=== PATIENT | female | born 1990 ===

== ENCOUNTER 2017-10-01 08:47 | Emergency (ER) | payer MEDICAID, OTHER ==
[2017-10-01 08:56] VITALS: BMI 27.4
[2017-10-01 08:59] VITALS: BP 119/83; PULSE 88; RESP 20; TEMP 98.1; O2SAT 100
[2017-10-01] MEDS ORDERED: Amoxicillin-Clav 875-125 mg Tab PO STA (09:38)
--- NOTE | 2017-10-01 09:41 | C.PDOC ---
History Of Present Illness 26 y/o female presents to ED for evaluation of cold sx for past few days associated with nasal congestion, runny nose, " sinuses pressure", sore throat and dry cough. Otherwise, Patient denies high fever, severe headache, dizziness , vertigo, drooling, neck pain, shortness of breath, wheezing, abdominal pain, vomiting or diarrhea, back pain, UTI sx. Ambulate to ED for evaluation, not in any apparent distress. Time Seen by Provider: 10/01/17 09:33 Chief Complaint (Nursing): Cough, Cold, Congestion History/Exam Limitations: no limitations Onset/Duration Of Symptoms: Days (2) Current Symptoms Are (Timing): Still Present Location Of Pain: Throat Associated Symptoms: Sore Throat, Cough, Nasal Congestion. denies: Vomiting, Diarrhea Past Medical History Reviewed: Historical Data, Nursing Documentation, Vital Signs Vital Signs: Last Vital Signs Temp 98.1 F 10/01/17 08:56 Pulse 88 10/01/17 08:56 Resp 20 10/01/17 08:56 BP 119/83 10/01/17 08:56 Pulse Ox 100 10/01/17 12:33 - Medical History PMH: No Chronic Diseases, Gastritis Surgical History: No Surg Hx - [facility] Procedures MANUAL ASSIST DELIV NEC (12/16/13) Family History: States: No Known Family Hx, Unknown Family Hx - Social History Hx Tobacco Use: No Hx Alcohol Use: Yes Hx Substance Use: No - Immunization History Hx Tetanus Toxoid Vaccination: No Hx Influenza Vaccination: No Hx Pneumococcal Vaccination: No Review Of Systems Except As Marked, All Systems Reviewed And Found Negative. Constitutional: Negative for: Fever ENT: Positive for: Throat Pain. Negative for: Other (drooling) Respiratory: Positive for: Cough (Dry). Negative for: Shortness of Breath Gastrointestinal: Negative for: Vomiting, Abdominal Pain, Diarrhea Musculoskeletal: Negative for: Neck Pain Physical Exam - Physical Exam Appears: Well, No Acute Distress Skin: Normal Color, Warm, Dry, No Rash Head: Normacephalic Eye(s): bilateral: PERRL Ear(s): Bilateral: Normal Nose: No Flaring, Discharge (B/L clear), No Deformity, No Tenderness Oral Mucosa: Moist, No Drooling, Other (B/L paranasal tenderness, no edema or erythema) Throat: Erythema (mild B/L pharyngeal), No Drooling Neck: Trachea Midline, Supple, Other ((-) meningeal sign) Cardiovascular: Rhythm Regular, No Murmur Respiratory: No Decreased Breath Sounds, No Accessory Muscle Use, No Stridor, No Wheezing Gastrointestinal/Abdominal: Soft, No Tenderness, No Distention, No Guarding Back: No CVA Tenderness Extremity: Normal ROM, No Deformity, No Swelling Neurological/Psych: Oriented x3, Normal Speech ED Course And Treatment O2 Sat by Pulse Oximetry: 100 (RA) Pulse Ox Interpretation: Normal Progress Note: Patient given Motrin, 1st dose of antibiotics and steriods. Stable for discharge home, instructed to take medications as prescribed and follow up with her primary care provider. Disposition Counseled Patient/Family Regarding: Diagnosis, Need For Followup, Rx Given - Disposition Referrals: [facility] [Outside] Disposition: HOME/ ROUTINE Disposition Time: 09:39 Condition: STABLE Additional Instructions: Encourage fluids Take medication as prescribed' Follow up with PMD in 2 days for re-evaluation. 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 - Scribe Statement The provider has reviewed the documentation as recorded by the Scribe (Daphnie Loera) All medical record entries made by the Scribe were at my direction and personally dictated by me. I have reviewed the chart and agree that the record accurately reflects my personal performance of the history, physical exam, medical decision making, and the department course for this patient. I have also personally directed, reviewed, and agree with the discharge instructions and disposition.
[2017-10-01] MEDS ORDERED: Amoxicillin-Clav 875-125 mg Tab PO ONE (09:56)
== END 2017-10-01 10:15 | disposition home or self-care (01) ==
LOC: C.ER 08:47
DX: J32.9 Chronic sinusitis, unspecified (principal)

== ENCOUNTER 2017-11-14 10:43 | Emergency (ER) | payer MEDICAID ==
[2017-11-14 10:43] VITALS: BMI 27.4
[2017-11-14 10:50] VITALS: O2SAT 100
[2017-11-14] MEDS ORDERED: Alum-Mag Hydrox-Simethicone Susp (30 mL) PO STA (11:34)
[2017-11-14] MEDS ORDERED: Sodium Chloride 0.9% 0 ML ONE (11:41)
[2017-11-14] MEDS ORDERED: Alum-Mag Hydrox-Simethicone Susp (30 mL) ONE (11:41)
[2017-11-14 11:58] LABS: BASO % 0.2 % (0.0-2.0); EOS # 0.2 K/uL (0.0-0.7); EOS % 2.6 % (0.0-4.0); LYMPH # 2.1 K/uL (1.0-4.3); LYMPH % 24.3 % (20.0-40.0); MEAN CORPUSCULAR HEMOGLOBIN 26.9 pg (27.0-31.0); MEAN CORPUSCULAR HGB CONC 33.4 g/dL (33.0-37.0); MONO # 0.5 K/uL (0.0-0.8); MONO % 5.5 % (0.0-10.0); NEUT # 5.8 K/uL (1.8-7.0); NEUT % 67.4 % (50.0-75.0); RBC 4.86 Mil/uL (3.80-5.20); RED CELL DISTRIBUTION WIDTH 12.9 % (11.5-14.5); WHITE BLOOD COUNT 8.6 K/uL (4.8-10.8)
[2017-11-14 12:02] LABS: HCG,QUALITATIVE URINE NEGATIVE (NEGATIVE)
[2017-11-14 12:03] LABS: HEMOGLOBIN 13.1 g/dL (11.0-16.0); MEAN CELL VOLUME 80.5 fL (81.0-99.0)
--- NOTE | 2017-11-14 12:06 | C.PDOC ---
History Of Present Illness 26 y/o female presents to ED with c/o abdominal pain for 3 days associated with nausea. Pt notes she has had the same symptoms for "years". She usually takes prilosec and pain improves but today pain radiated to her chest prompting ED visit. No prior endoscope. Notes she eats "junk"- fast food and snacks. Denies fever, vomting, blood in stool, vaginal bleeding, vaginal discharge, back pain, dysuria, sob or any other complaints at this time. Time Seen by Provider: 11/14/17 11:02 Chief Complaint (Nursing): Chest Pain History Per: Patient History/Exam Limitations: no limitations Onset/Duration Of Symptoms: Days Current Symptoms Are (Timing): Still Present Quality: "Pain" Associated Symptoms: Nausea Past Medical History Reviewed: Historical Data, Nursing Documentation, Vital Signs Vital Signs: Last Vital Signs Temp 98.9 F 11/14/17 12:56 Pulse 85 11/14/17 12:56 Resp 18 11/14/17 12:56 BP 120/81 11/14/17 12:56 Pulse Ox 100 11/14/17 14:08 - Medical History PMH: Gastritis Surgical History: No Surg Hx - [facility] Procedures MANUAL ASSIST DELIV NEC (12/16/13) Family History: States: No Known Family Hx - Social History Hx Tobacco Use: No Hx Alcohol Use: Yes Hx Substance Use: No - Immunization History Hx Tetanus Toxoid Vaccination: No Hx Influenza Vaccination: No Hx Pneumococcal Vaccination: No Review Of Systems Except As Marked, All Systems Reviewed And Found Negative. Constitutional: Negative for: Fever, Chills Cardiovascular: Positive for: Chest Pain Respiratory: Negative for: Cough, Shortness of Breath Gastrointestinal: Positive for: Nausea, Abdominal Pain. Negative for: Vomiting , Diarrhea Genitourinary: Negative for: Dysuria Skin: Negative for: Rash Physical Exam - Physical Exam Appears: Non-toxic, No Acute Distress Skin: Warm, Dry, No Rash Head: Atraumatic, Normacephalic Eye(s): bilateral: Normal Inspection, EOMI Nose: Normal Oral Mucosa: Moist Neck: Normal ROM, Supple Chest: Symmetrical Cardiovascular: Rhythm Regular Respiratory: Normal Breath Sounds, No Rales, No Rhonchi, No Wheezing Gastrointestinal/Abdominal: Soft, Tenderness (Epigastric), No Guarding, No Rebound Back: No CVA Tenderness, No Paraspinal Tenderness Extremity: Normal ROM, Capillary Refill (<2 seconds) Neurological/Psych: Oriented x3, Normal Speech, Normal Cognition ED Course And Treatment - Laboratory Results Result Diagrams: 11/14/17 11:52 11/14/17 11:52 ECG: Interpreted By Me, Viewed By Me ECG Rhythm: Sinus Rhythm Rate From EC O2 Sat by Pulse Oximetry: 100 (RA) Pulse Ox Interpretation: Normal - Other Rad Obstructive series X-Ray: Viewed By Me, Read By Radiologist Interpretation: PROCEDURE: Radiographs of the chest and abdomen (obstructive series). HISTORY: Abd Pain. COMPARISON: No prior. TECHNIQUE: AP radiograph of the chest, with upright and supine radiographs of the abdomen. FINDINGS: CHEST: Lungs: The lungs are well inflated and clear. Cardiovascular : Normal size heart. No pulmonary vascular congestion. Pleura: No pleural fluid. No pneumothorax. Other findings: None. ABDOMEN AND PELVIS: Bowel: There is moderate amount of stool in the colon. No evidence of mechanical obstruction. Free air: None. Bones: Unremarkable. Other findings: None. IMPRESSION: Clear lungs. Nonobstructive bowel-gas pattern. Moderate stool burden in the colon. Progress Note: Obstructive series, UA ordered. Protonix and Maalox administered. On re evaluation, pt notes pain improved. Toelrating PO. Lunga CTA. Abdomen soft, nontender. AFebrile. Discussed with pt work up and limitations, instructed diet change and follow up with GI in 1-2 days. Insructed to return to ER If symtpoms persist or worsen. Disposition - Disposition Referrals: Gui Lubin MD [Staff Provider] - Disposition: HOME/ ROUTINE Disposition Time: 12:46 Condition: STABLE Additional Instructions: Continue the prilosec. Change diet as discussed. Follow up with GI specialist in 1-2 days. Return to ER if symptoms persist or worsen. 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 - Scribe Statement The provider has reviewed the documentation as recorded by the Laniibyaron Rothman All medical record entries made by the Scribe were at my direction and personally dictated by me. I have reviewed the chart and agree that the record accurately reflects my personal performance of the history, physical exam, medical decision making, and the department course for this patient. I have also personally directed, reviewed, and agree with the discharge instructions and disposition.
[2017-11-14 12:11] LABS: ALB/GLOB RATIO 1.2 (1.0-2.1); ALBUMIN 4.3 g/dL (3.5-5.0); ALT/SGPT 20 U/L (9-52); AST/SGOT 33 U/L (14-36); BLOOD UREA NITROGEN 12 mg/dL (7-17); CALCIUM 9.2 mg/dl (8.6-10.4); GFR AFRICAN-AMERICAN > 60; GFR NON-AFRICAN AMERICAN > 60; LIPASE 81 U/L (23-300)
[2017-11-14 12:13] LABS: SQUAMOUS EPITHIAL 1 /hpf (0-5); URINE BILIRUBIN NEGATIVE (NEGATIVE); URINE BLOOD 1+ (NEGATIVE); URINE CLARITY Clear (Clear); URINE COLOR Yellow (YELLOW); URINE GLUCOSE (UA) NORMAL (Normal); URINE LEUKOCYTE ESTERASE NEG Leu/uL (Negative); URINE PROTEIN NEGATIVE (NEGATIVE); URINE UROBILINOGEN NORMAL mg/dL (0.2-1.0)
--- NOTE | 2017-11-14 12:46 | RAD ---
PROCEDURE: Radiographs of the chest and abdomen (obstructive series) HISTORY: Abd Pain COMPARISON: No prior. TECHNIQUE: AP radiograph of the chest, with upright and supine radiographs of the abdomen. FINDINGS: CHEST: Lungs: The lungs are well inflated and clear. Cardiovascular: Normal size heart. No pulmonary vascular congestion. Pleura: No pleural fluid. No pneumothorax. Other findings: None. ABDOMEN AND PELVIS: Bowel: There is moderate amount of stool in the colon. No evidence of mechanical obstruction. Free air: None. Bones: Unremarkable. Other findings: None. IMPRESSION: Clear lungs. Nonobstructive bowel-gas pattern. Moderate stool burden in the colon.
[2017-11-14 12:57] VITALS: BP 120/81; PULSE 85; RESP 18; TEMP 98.9
== END 2017-11-14 13:03 | disposition home or self-care (01) ==
LOC: C.ER 10:43
DX: R10.9 Unspecified abdominal pain (principal)
CPT/HCPCS: 74022; 80053; 81001; 83690; 84703; 85025; 96374; 99285; C9113

== ENCOUNTER 2018-02-05 09:49 | Emergency (ER) | payer MEDICAID ==
[2018-02-05 09:49] VITALS: BMI 27.4
[2018-02-05 10:00] VITALS: BP 115/76; PULSE 82; TEMP 98.4; O2SAT 98
[2018-02-05 10:47] LABS: HCG,QUALITATIVE URINE NEGATIVE (NEGATIVE)
[2018-02-05 10:54] LABS: SQUAMOUS EPITHIAL 2 /hpf (0-5); URINE BILIRUBIN NEGATIVE (NEGATIVE); URINE BLOOD 3+ (NEGATIVE); URINE CLARITY Clear (Clear); URINE COLOR Yellow (YELLOW); URINE GLUCOSE (UA) NORMAL (Normal); URINE LEUKOCYTE ESTERASE NEG Leu/uL (Negative); URINE PROTEIN NEGATIVE (NEGATIVE); URINE UROBILINOGEN NORMAL mg/dL (0.2-1.0)
--- NOTE | 2018-02-05 11:32 | C.PDOC ---
History Of Present Illness 27 y/o female, w/ no significant PMhx, presents to the ER complaining of vaginal spotting and abdominal cramping which began in the morning today. Patient states that her LMP was on 01/21/18, she notes that it lasted 1 week as usual. However, she noticed vaginal spotting in the morning today so she became scared. She also notes that she she had some diarrhea which stopped yesterday and she felt nauseous. Currently, patient denies having nausea, diarrhea, fever , and chills. Chief Complaint (Nursing): Female Genitourinary History Per: Patient History/Exam Limitations: no limitations Onset/Duration Of Symptoms: Hrs Current Symptoms Are (Timing): Still Present Severity: Moderate Past Medical History Reviewed: Historical Data, Nursing Documentation, Vital Signs Vital Signs: Last Vital Signs Temp 98.4 F 02/05/18 09:56 Pulse 82 02/05/18 09:56 Resp 20 02/05/18 11:55 BP 115/76 02/05/18 09:56 Pulse Ox 98 02/05/18 11:37 - Medical History PMH: Gastritis Surgical History: No Surg Hx - [facility] Procedures MANUAL ASSIST DELIV NEC (12/16/13) Family History: States: No Known Family Hx - Social History Hx Tobacco Use: No Hx Alcohol Use: Yes Hx Substance Use: No - Immunization History Hx Tetanus Toxoid Vaccination: No Hx Influenza Vaccination: No Hx Pneumococcal Vaccination: No Review Of Systems Except As Marked, All Systems Reviewed And Found Negative. Constitutional: Negative for: Fever, Chills Gastrointestinal: Positive for: Abdominal Pain. Negative for: Nausea, Vomiting Genitourinary: Positive for: Other (vaginal spotting) Physical Exam - Physical Exam Appears: Non-toxic, No Acute Distress Skin: Normal Color, Warm, Dry Head: Atraumatic, Normacephalic Eye(s): bilateral: Normal Inspection Nose: Normal Oral Mucosa: Moist Neck: Supple Chest: Symmetrical Cardiovascular: Rhythm Regular Respiratory: Normal Breath Sounds, No Rales, No Rhonchi, No Wheezing Gastrointestinal/Abdominal: Normal Exam, Soft, No Tenderness, No Guarding, No Rebound Neurological/Psych: Oriented x3, Normal Speech ED Course And Treatment O2 Sat by Pulse Oximetry: 98 (RA) Pulse Ox Interpretation: Normal Medical Decision Making Medical Decision Making: Impression: Dysfunctional Uterine Bleeding: Plan: --Motrin PO --HCG, Qual. --UA Updates: Patient has been discharged and instructed to follow up with RESIDENT SERVICES MANAGER. Disposition - Disposition Referrals: [facility] at [facility] [place] [facility] [Outside] [facility] at [facility] [Outside] [facility] at [place] [Outside] Disposition: HOME/ ROUTINE Disposition Time: 11:55 Condition: GOOD Additional Instructions: Follow up with your Allied Health Instructor doctor in a few days and take motrin for pain. Prescriptions: Ibuprofen [Motrin] 600 mg PO Q6 #20 tab Instructions: Absent or Irregular Periods, Heavy Periods Forms: [facility] (Czech) - Clinical Impression Clinical Impression: Bleeding from vagina - Scribe Statement The provider has reviewed the documentation as recorded by the Scribe Walter Tamayo Provider Attestation: All medical record entries made by the Scribe were at my direction and personally dictated by me. I have reviewed the chart and agree that the record accurately reflects my personal performance of the history, physical exam, medical decision making, and the department course for this patient. I have also personally directed, reviewed, and agree with the discharge instructions and disposition.
[2018-02-05 11:56] VITALS: RESP 20
== END 2018-02-05 11:55 | disposition home or self-care (01) ==
LOC: C.ER 09:49
DX: N93.8 Other specified abnormal uterine and vaginal bleeding (principal)